=== PATIENT | male | born 1975 | race Caucasian/White ===

== ENCOUNTER 2020-10-24 12:38 | Outpatient (CLI) | payer OTHER, SELFPAY ==
[2020-10-24] MEDS: 0.9% Saline Lock 10 ML Syringe IV (12:53)
[2020-10-24 12:56] VITALS: BP 141/88; PULSE 86; RESP 20; TEMP 37.1; O2SAT 96; BMI 38.3
[2020-10-24 13:42] VITALS: BP 131/90; PULSE 76; RESP 16; TEMP 37.3; O2SAT 97
[2020-10-24 14:39] VITALS: BP 127/84; PULSE 81; RESP 18; TEMP 37.7; O2SAT 96
== END 2020-10-24 14:42 | disposition home or self-care (01) ==
LOC: ICUOUT 12:40 → MS2 12:41
PROVIDERS: Referring Provider Nurse Practitioner Acute Care; Visit Provider Nurse Practitioner Acute Care
DX: Z23 Encounter for immunization (principal); U07.1 COVID-19
CPT/HCPCS: J7050; M0243; A4216; Q0244